=== PATIENT | female | born 1975 | race Caucasian/White ===

== ENCOUNTER 2016-05-15 16:51 | Emergency (ER) | payer OTHER ==
[2016-05-15] MEDS ORDERED: NS 1,000 ML IV ONE ×2 (17:24→19:19)
[2016-05-15 17:29] LABS: % IMMATURE GRANULYOCYTES 0.3 % (0.0-1.1); ABSOLUTE IMMATURE GRANULOCYTES 0.03 10^3/uL (0.00-0.10); ADD DIFF? NO; ADD MORPH? NO; ADD SCAN? NO; ATYPICAL LYMPHOCYTE FLAG 20 (0-99); FRAGMENT RBC FLAG 0 (0-99); HEMATOCRIT 37.5 % (38.0-47.0); HEMOGLOBIN 13.2 g/dL (12.6-16.3); LEFT SHIFT FLG 0 (0-99); LIPEMIA HEMOLYSIS FLAG 90 (0-99); MEAN CELL HEMOGLOBIN 31.4 pg (27.9-34.1); MEAN CELL HEMOGLOBIN CONCENTR. 35.2 g/dL (32.4-36.7); MEAN CELL VOLUME 89.1 fL (81.5-99.8); MEAN PLATELET VOLUME 10.7 fL (8.7-11.7); PLATELET CLUMPS FLAG 20 (0-99); PLATELET COUNT 233 10^3/uL (150-400); RED BLOOD CELL COUNT 4.21 10^6/uL (4.18-5.33); RED CELL DISTRIBUTION WIDTH 12.5 % (11.5-15.2)
[2016-05-15 17:44] LABS: ALANINE AMINOTRANSFERASE 37 IU/L (9-52); ALBUMIN 3.9 g/dL (3.5-5.0); ALKALINE PHOSPHATASE 60 IU/L (38-126); ANION GAP 12 mEq/L (8-16); ASPARTATE AMINOTRANSFERASE 34 IU/L (14-46); BILIRUBIN,TOTAL 0.4 mg/dL (0.1-1.4); CALCIUM 9.4 mg/dL (8.5-10.4); CARBON DIOXIDE 24 mEq/l (22-31); CHLORIDE 105 mEq/L (97-110); CREATININE 0.8 mg/dL (0.6-1.0); GLOMERULAR FILTRATION RATE > 60; GLUCOSE 90 mg/dL (70-100); POTASSIUM 3.7 mEq/L (3.5-5.2); SODIUM 141 mEq/L (134-144); TOTAL PROTEIN 6.6 g/dL (6.3-8.2)
--- NOTE | 2016-05-15 17:52 | EDPHY ---
H & P Stated Complaint: spontaneous miscarriage Source: Patient Exam Limitations: No limitations - Personal History LMP (Females 10-55): Current Tetanus/Diphtheria Vaccine: Unsure Current Tetanus Diphtheria and Acellular Pertussis (TDAP): Unsure - Medical/Surgical History Hx Asthma: No Hx Chronic Respiratory Disease: No Hx Diabetes: No Hx Cardiac Disease: No Hx Renal Disease: No Hx Cirrhosis: No Hx Alcoholism: No Hx HIV/AIDS: No Hx Splenectomy or Spleen Trauma: No Other PMH: 12 weeks preg by ultraspound. - Family History Significant Family History: No pertinent family hx - Social History Smoking Status: Never smoked Alcohol Use: None Drug Use: None Time Seen by Provider: 05/15/16 17:35 HPI/ROS: HPI: 40-year-old female presents to emergency department with chief concern miscarriage. She was just over 3 months . Reports onset of vaginal bleeding today at 2:00 p.m. followed by visualization of products of conception including the fetus, the placenta. She then began to pass clots and gush blood. Four States dizzy as though she were going to pass out. Denies fever, chills , myalgias, shortness of breath, chest pain, abdominal pain, pelvic pain, nausea , vomiting. 7 para 3. Has had 3 miscarriages in the past. No significant past medical history. ROS:10 point review of systems is negative other than as stated in HPI (Velia Gan) - Social History Additional Social History: (Velia Gan) - Physical Exam Exam: Vital signs stable, reviewed by me General: Awake, alert, calm, cooperative. No acute distress. Head: Normalocephalic. Atraumatic. EENT: PERRLA. EOMI. No pallor or injection. Anicteric. No nystagmus. No injection. TMs intact bilaterally with normal landmarks. No rhinnorhea, nasal passages clear. Oropharynx without redness, exudates, or lesions. Tonsils 2+ bilaterally, no exudates. Neck: Supple, nontender. No lymphadenopathy. Full range of motion. No meningismus. Respiratory: Breathing unlabored. Breath sounds equal bilaterally and clear to auscultation. No adventitious sounds. CV: Chest nontender, atraumatic. Heart rate regular. No murmur, distal pulses 2+ bilaterally. Brisk cap refill all extremities. GI: Abdomen soft, nontender. Bowel sounds hyperactive and positive x4 quadrants. : No suprapubic tenderness. No CVA or flank tenderness. Moderate vaginal bleeding presently. Neuro: Alert. Oriented x 3. Speech clear. Nonfocal cranial nerves throughout. Sensation intact all extremities. Skin: Skin warm, dry, intact. No rashes, abrasions, or lacerations. Skin turgor normal. Extremities: Full range of motion in all 4 extremities. Strength 5+ all extremities. (Velia Gan) Constitutional: Initial Vital Signs Temperature (C) 36.5 C 05/15/16 17:01 Heart Rate 70 05/15/16 17:01 Respiratory Rate 18 05/15/16 17:01 Blood Pressure 97/56 L 05/15/16 17:01 O2 Sat (%) 97 05/15/16 17:01 O2 Delivery Mode Room Air Allergies/Adverse Reactions: No Known Allergies Allergy (Verified 05/15/16 17:00) Home Medications: Medication Instructions Recorded Miscellaneous Medical Supply [NO 1 ea [facility] AD 07/01/12 HOME MEDS] Methylergonovine Maleate 0.2 mg PO TID #6 tab 05/15/16 [Methergine 0.2 mg (*)] Medical Decision Making ED Course/Re-evaluation: 1800:40-year-old female presents to emergency department having had a miscarriage today. She visualized the fetus and placenta. Reports to ED for prolonged bleeding. Vitals are stable. H&H 13.2/37.5. Ultrasound confirms absence of fetus. Hyperemic material in the uterus that is echogenic and consistent with spontaneous miscarriage. No free fluid in the pelvis. Denies any discomfort. Given 1 L normal saline. Discussed her case with on-call OB for [place] Dr. Nunez. Given 0.2 mg IM methergine. 0: Blood pressure dropped to 75/49. Patient given additional L of fluid. Blood pressure improved to 1 19/76. 2100: Vitals stable. Patient is not orthostatic. After multiple attempts, Patient is unable to ambulate without feeling nauseous, dizzy. She will be admitted to [facility]. Admission accepted by Dr. Nunez. 2199: Transferred to [facility] by ALS (Velia Gan) PHYSICIAN DOCUMENTATION: The patient was evaluated and managed by the nurse practitioner and myself. I have reviewed the chart and agree with the findings and plan of care as documented. In addition, I examined the patient myself at 1915. History confirmed as 3 months , bleeding today at 1400, passed POC at home. Physical findings as follows: abdomen soft, no peritoneal signs. IVF 2 liters, hematocrit 37 down to 32. Single episode of hypotension which I was present for, likely vasovagal. Ultrasound findings reviewed, given methergine after consultation with her OB practice. Still symptomatic, discussed at 2230 with [facility] physician who requested transfer to [facility] for ongoing care. Transferred in stable condition for supportive care, treatment of symptoms, LIFT OPERATOR consultation; a [place] requested transfer to [facility]. I am the secondary supervising physician. (Raza Wong) Differential Diagnosis: Spontaneous , hemorrhage (Velia Gan) - Data Points Laboratory Results: Laboratory Results 05/15/16 14:52 05/15/16 14:52 05/15/16 19:14 POC Hgb 10.9 L gm/dL (12.3-15.9) POC Hct 32 L % (35.5-47.5) POC Sodium 142 mEq/L (134-144) POC Potassium 4.0 mEq/L (3.3-5.0) POC Chloride 109 H mEq/L (96-108) POC BUN 17 mg/dL (7-23) POC Creatinine 0.7 mg/dL (0.6-1.2) POC Glucose 102 H mg/dL (70-100) Medications Given: Discontinued Medications Sodium Chloride (Ns) 1,000 mls @ 0 mls/hr IV ONCE ONE PRN Reason: Wide Open Stop: 05/15/16 17:25 Last Admin: 05/15/16 17:24 Dose: 1,000 mls Sodium Chloride (Ns) 1,000 mls @ 0 mls/hr IV ONCE ONE PRN Reason: Wide Open Stop: 05/15/16 19:20 Last Admin: 05/15/16 19:20 Dose: 1,000 mls Methylergonovine Maleate (Methergine) 0.2 mg IM EDNOW ONE Stop: 05/15/16 19:51 Last Admin: 05/15/16 20:03 Dose: 0.2 mg Ondansetron HCl (Zofran) 4 mg IVP EDNOW ONE Stop: 05/15/16 19:14 Last Admin: 05/15/16 22:07 Dose: Not Given Point of Care Test Results: 05/15/16 19:14 POC Sodium 142 POC Potassium 4.0 POC Chloride 109 H POC BUN 17 POC Creatinine 0.7 POC Glucose 102 H Departure - Departure Disposition: [facility] Clinical Impression: Miscarriage Condition: Good Instructions: Miscarriage (ED) Additional Instructions: Plan: Use the Methergine 3 times daily for the next 2 days Follow up with your new order clerk on the Return to the emergency department if you have any dizziness, shortness of breath, chest pain, or other concerning symptoms Referrals: [place],. [Primary Care Provider] - As per Instructions Prescriptions: Methylergonovine Maleate [Methergine 0.2 mg (*)] 0.2 mg PO TID #6 tab
[2016-05-15] MEDS ORDERED: ONDANSETRON 4 MG/2 ML VIAL IVP ONE (19:13)
--- NOTE | 2016-05-15 19:27 | US ---
Ultrasound Limited OB History: Miscarriage by history; confirm that the fetus has been passed. Technique: Transabdominal ultrasound images were obtained. Color Doppler evaluation is employed for assessment of vascularity. Findings: No fetus or gestational sac is identified. The endometrium is heterogeneous and measures 16 mm in diameter. There is prominent hypervascular material contained within the endometrial canal whi ch may represent retained products of conception. The ovaries are visualized and appear normal. No free fluid is seen. Impression: 1. A fetus is not visualized. 2. Heterogeneous hyperemic material is contained within the endometrial canal which could reflect ret ained products of conception. A preliminary report was called to XENIA Hopkins at 1920 hours in the Emergency Department.
[2016-05-15] MEDS ORDERED: METHYLERGONOVINE MAL 0.2 MG/ML INJ IM ONE (19:50)
[2016-05-15 23:32] VITALS: BP 120/74; PULSE 83; RESP 16; TEMP 97.9; O2SAT 96
== END 2016-05-15 23:32 | disposition short-term general hospital (02) ==
LOC: EDUNIT#
DX: O03.9 Complete or unspecified spontaneous abortion without complication (principal); Z3A.12 12 weeks gestation of pregnancy
CPT/HCPCS: 82947-QW; J2210